=== PATIENT | female | born 1955 | race Caucasian/White ===

== ENCOUNTER 2016-08-31 19:11 | Emergency (ER) | payer OTHER, MEDICAID ==
[~2016-08-31] VITALS: Ht 154.9 cm; Wt 54.0 kg
[~2016-08-31 19:11] MED LIST: ALPR0.25 PO
[2016-08-31 19:17] VITALS: Ht 154.9 cm; Wt 54.0 kg
[2016-08-31] MEDS ORDERED: ONDANSETRON (ODT) 4 MG TAB ODT STA (19:48)
[2016-08-31] MEDS ORDERED: NAPR-260 PO (19:57)
--- NOTE | 2016-08-31 19:57 | ERD ---
ER Documentation Chief Complaint Date/Time DATE: 08/31/16 TIME: 19:49 Chief Complaint c/o sob, states had 2 fx ribs, no sob in triage, lungs clear HPI 60-year-old female with a history of COPD and hypertension presents to the emergency department complaining of 10 out of 10, stabbing, left sided rib pain due to confirmed rib fractures. Patient states she has attempted to take Motrin and Tylenol at home with only mild relief. Patient states the pain is worse when pressure is applied to the area or when she coughs. Patient states that a week ago she was mopping in her house slipped and fell landing on her left side and immediately felt pain. Patient was seen and x-rays were performed confirming to nondisplaced fractures. Patient was sent home with instructions and pain medicine. Patient states that her pain has not improved. She denies any new injury, cough, fever, nausea, vomiting, diarrhea, or abdominal pain. ROS All systems reviewed and are negative except as per history of present illness. Medications Home Meds Reported Medications Alprazolam* (Xanax*) 0.25 Mg Tablet, 0.25 MG PO PRN 02/26/13 Allergies Allergies: Coded Allergies: gabapentin (Verified Allergy, Unknown, sob, 08/31/16) PMhx/Soc History of Surgery: Yes (KNEE, SPLEEN,APENDECTOMY) Anesthesia Reaction: No Hx Neurological Disorder: No Hx Respiratory Disorders: Yes (ASTHMA, COPD) Hx Cardiac Disorders: No Hx Psychiatric Problems: No Hx Miscellaneous Medical Probl: Yes (SCOLIOSIS) Hx Alcohol Use: No Hx Substance Use: No Hx Tobacco Use: Yes Smoking Status: Current every day smoker Physical Exam Vitals Vital Signs Date Time Temp Pulse Resp B/P Pulse Ox O2 Delivery O2 Flow Rate FiO2 08/31/16 19:17 98.7 90 20 129/71 97 Physical Exam Const: Well-developed, well-nourished, in mild distress Head: Atraumatic Eyes: Normal Conjunctiva ENT: Normal External Ears, Nose and Mouth. Neck: Full range of motion..~ No meningismus. Resp: Clear to auscultation bilaterally. No wheezes, rhonchi, rales. Cardio: Regular rate and rhythm, no murmurs Abd: Soft, non tender, non distended. Normal bowel sounds Skin: Bruise appreciated along the anterior superior iliac region. Tenderness to palpation along left lateral ribs. No crepitus. No step-offs. No petechiae or rashes Back: No midline or flank tenderness Ext: No cyanosis, or edema Neur: Awake and alert Psych: Normal Mood and Affect Procedures/MDM 60-year-old female presents with complaints of left-sided rib pain which has been ongoing since a slip and fall while mopping a floor. Patient was initially seen following the accident and diagnosed with 2 rib fractures. Patient states she continues to experience 10 out of 10 pain despite treatment of anti-inflammatory occasion at home. She denies any new trauma. Patient denies any shortness of breath, cough. Vital signs reviewed. Patient afebrile , non-tachycardic and normotensive as well as non-hypoxic. Patient received a dose of pain medicine while in the emergency department and reports significant improvement of symptoms. Patient's clinical presentation consistent with left-sided rib pain due to rib fracture. At this time I have a low suspicion for pneumothorax, COPD exacerbation, severe systemic illness or sepsis. Patient to continue treatment with oral pain medication at home as previously instructed and follow-up with primary care provider. Based on patient's history of present illness and physical examination the decision was made to discharge. The patient was re-evaluated after ED treatment and stabilizing measures, and symptoms have improved. There is no evidence of life threatening injuries or illnesses at this time. On re-examination, patient resting in no distress, stable vital signs, reports feeling better and safe for discharge with outpatient follow up with PMD in 1-2 days. Patient given return precautions. Departure Diagnosis: Primary Impression: Rib pain on left side Additional Impression: Rib fractures Encounter type: subsequent encounter Rib fracture type: multiple ribs Fracture type: closed Laterality: left Fracture healing: with routine healing Qualified Code: S22.42XD - Closed fracture of multiple ribs of left side with routine healing, subsequent encounter WILLIE CHACKO PA-C Aug 31, 2016 19:57
[2016-08-31] MEDS ORDERED: morphine 10 MG INJ IM ONE (20:00)
[2016-08-31 20:03] VITALS: BP 129/71; RESP 20
[2016-09-01] MEDS ORDERED: NAPR-260 PO (15:33)
== END 2016-08-31 20:05 | disposition home or self-care (01) ==
LOC: FTE 19:11
DX: S22.42XD Multiple fractures of ribs, left side, subsequent encounter for fracture with routine healing (principal); F17.210 Nicotine dependence, cigarettes, uncomplicated; J45.901 Unspecified asthma with (acute) exacerbation; I10 Essential (primary) hypertension; J44.9 Chronic obstructive pulmonary disease, unspecified; W01.0XXD Fall on same level from slipping, tripping and stumbling without subsequent striking against object, subsequent encounter
CPT/HCPCS: 96372; J2270

== ENCOUNTER 2016-09-01 14:14 | Emergency (ER) | payer OTHER, MEDICAID ==
[~2016-09-01] VITALS: Ht 152.4 cm; Wt 65.0 kg
[~2016-09-01 14:14] MED LIST changes: +NAPR-260 PO
[2016-09-01 14:22] VITALS: Ht 152.4 cm; Wt 65.0 kg
[2016-09-01] MEDS ORDERED: NAPR-260 PO (15:33)
[2016-09-01] MEDS ORDERED: KETOROLAC 30 MG INJ IM STA (15:33)
--- NOTE | 2016-09-01 17:50 | ERD ---
ER Documentation Chief Complaint Date/Time DATE: 09/01/16 TIME: 17:45 Chief Complaint AGITATED,WANTS PAIN SHOT, MOOD SWINGS, HX BIPOLAR HPI 60-year-old woman with a history of left rib pain and injury presents again for morphine injection. She was seen and evaluated here yesterday and discharged with anxiolytics, I also saw her admission, the hospital last week for the exact same thing, at that time she was a new patient to me and I did administer morphine intramuscular injection for pain relief and told her to follow-up with her PMD as well as a pain specialist. She denies recent falls, no cough, no fevers or chills, no shortness of breath, no calf or leg swelling. ROS All systems reviewed and are negative except as per history of present illness. Medications Home Meds Active Scripts Naproxen* (Naprosyn*) 500 Mg Tablet, 500 MG PO BID Y for PAIN AND/OR INFLAMMATION, #30 TAB Prov:ABILIO FALL MD 09/01/16 Naproxen* (Naprosyn*) 500 Mg Tablet, 500 MG PO BID Y for PAIN AND/OR INFLAMMATION, #30 TAB Prov:WILLIE CHACKO PA-C 08/31/16 Reported Medications Alprazolam* (Xanax*) 0.25 Mg Tablet, 0.25 MG PO PRN 02/26/13 Allergies Allergies: Coded Allergies: gabapentin (Verified Allergy, Unknown, sob, 08/31/16) PMhx/Soc Left-sided rib fracture, anxiety, chronic pain syndrome, opioid dependence, anxious History of Surgery: Yes (KNEE, SPLEEN,APENDECTOMY) Anesthesia Reaction: No Hx Neurological Disorder: No Hx Respiratory Disorders: Yes (ASTHMA, COPD) Hx Cardiac Disorders: No Hx Psychiatric Problems: No Hx Miscellaneous Medical Probl: Yes (SCOLIOSIS) Hx Alcohol Use: No Hx Substance Use: No Hx Tobacco Use: Yes FmHx Family History: No diabetes Physical Exam Vitals Vital Signs Date Time Temp Pulse Resp B/P Pulse Ox O2 Delivery O2 Flow Rate FiO2 09/01/16 14:22 98.1 90 18 140/78 99 Physical Exam GENERAL: Well-developed, well-nourished, well-hydrated, in no apparent distress , looks nontoxic in appearance HEENT: Moist mucous membranes, pink conjunctiva, no cervical spine tenderness or step-off deformities, no goiter, no jaundice or icterus, extraocular movements intact without pain. No submandibular induration, and no pharyngeal erythema NEURO: Alert and oriented 3, cranial nerves II through XII intact bilaterally, pupils equal round reactive to light, no focal deficits or facial asymmetry, sensation intact distally Strength 5/5 in upper and lower extremities bilaterally CARDIAC: Regular rate and rhythm, no murmurs rubs or gallops LUNGS: Clear bilaterally no wheezing crackles or stridor ABDOMEN: Soft nontender, no guarding, no rigidity, no rebound, no psoas sign no obturator sign. Normoactive bowel sounds SKIN: Warm and dry to touch, no abrasions, contusions, or hematomas, no lacerations, no ecchymosis, no target lesions, and without ulcers EXTREMITIES: No clubbing cyanosis or edema, calves are bilaterally symmetrical, no Homans sign, no popliteal cord sign. Distal pulses equal and bilateral PSYCH: Normal affect without agitation or irritability Results 24 hrs Current Medications Medications (Trade) Dose Ordered Sig/Hollis Route PRN Reason Start Time Stop Time Status Last Admin Dose Admin Ketorolac Tromethamine (Toradol) 30 mg ONCE STAT IM 09/01/16 15:33 09/01/16 15:34 DC Procedures/MDM I provided reassurance to the patient but refused to administer opioids, I referred her to her PMD for pain specialist consultation. She was given a dose of morphine for this pain yesterday. I reviewed her previous imaging studies. I administered Toradol 30 mg intramuscular injection here in the emergency department with good pain relief. Differential diagnoses considered, included but not limited to acute coronary syndrome, pulmonary embolism, aortic dissection, abdominal aortic aneurysm, sepsis, stroke, meningitis, encephalitis, pneumonia, appendicitis, cholecystitis , bowel obstruction, pyelonephritis, nephrolithiasis, cystitis, as well as metabolic, hematologic, and electrolyte abnormalities. As well as abscess, cellulitis, fractures, and dislocations. Patient feels much better at this time, and vital signs are normal, symptoms have improved. I did give strict instructions to return to the ED if symptoms continue or worsen, patient will otherwise follow-up with primary care physician. Patient understood instructions and agreed to plan. Departure Diagnosis: Primary Impression: Rib pain Additional Impressions: Pain syndrome, chronic Opioid dependence Substance use status: with unspecified opioid-induced disorder Qualified Code : F11.29 - Opioid dependence with opioid-induced disorder Condition: Good Patient Instructions: Fracture, Rib Referrals: ASHOK ANGELES MD, DAVID MD Sep 01, 2016 17:50
== END 2016-09-01 18:30 | disposition home or self-care (01) ==
LOC: E/R 14:14
DX: R07.81 Pleurodynia (principal); G89.4 Chronic pain syndrome; F11.29 Opioid dependence with unspecified opioid-induced disorder; J45.909 Unspecified asthma, uncomplicated; Z87.891 Personal history of nicotine dependence
CPT/HCPCS: 96372; 99284; J1885

== ENCOUNTER 2018-10-16 00:27 | Emergency (ER) | payer MEDICARE, MEDICAID ==
[~2018-10-16] VITALS: Ht 160 cm; Wt 53.3 kg
[~2018-10-16 00:27] MED LIST changes: -NAPR-260 PO; +NAPR-985 PO
[2018-10-16 00:40] VITALS: Ht 160 cm; Wt 53.3 kg
[2018-10-16] MEDS ORDERED: DIPHENHYDRAMINE 25 MG CAP PO ONE (03:00)
[2018-10-16] MEDS ORDERED: predniSONE 20 MG TAB PO ONE (03:00)
[2018-10-16] MEDS ORDERED: RANITIDINE 150 MG TAB PO ONE (03:00)
[2018-10-16] MEDS ORDERED: RANI150T35 PO (04:00)
[2018-10-16] MEDS ORDERED: PRED20TA PO (04:00)
[2018-10-16] MEDS ORDERED: LORA10CA PO (04:00)
[2018-10-16] MEDS ORDERED: HYDR25CA PO (04:00)
[2018-10-16] MEDS ORDERED: HYDROCHLOROTHIAZIDE 25 MG TAB PO ONE (05:00)
[2018-10-16 06:24] VITALS: BP 186/95; PULSE 80; RESP 16
--- NOTE | 2018-10-16 23:56 | ERD ---
ER Documentation Chief Complaint Chief Complaint generalize body rash x 2 days HPI This is a 62-year-old female patient who presents to the emergency room with generalized body rash. States this rash started yesterday after trying on clothes at [address] [facility], was seen at a different emergency room and given 1 dose of prednisone and Benadryl but no prescription. Patient states urticaria had resolved and then started again this evening worse than it was yesterday. Patient presents with urticarial rash on back, shoulders, arms, no rash on lower extremities. No wheezing, no cough, no angioedema. Patient medical history includes bipolar, anxiety, hypertension. Patient is observed to be hypertensive at triage, states she takes unknown blood pressure medication at home. States she had been on hydrochlorothiazide recently but it was changed to another medication of name she does not remember. Patient denies chest pain, no headache, patient pleasant and cooperative at time of evaluation. ROS All systems reviewed and are negative except as per history of present illness. Medications Home Meds Active Scripts Hydroxyzine Pamoate* (Vistaril*) 25 Mg Capsule, 25 MG PO Q6H PRN for ITCHING for 10 Days, #30 CAP Prov:THA GARSIA NP 10/16/18 Ranitidine Hcl* (Zantac*) 150 Mg Tablet, 150 MG PO BID PRN for RASH for 5 Days, #10 TAB Prov:THA GARSIA NP 10/16/18 Prednisone* (Prednisone*) 20 Mg Tab, 40 MG PO DAILY for 3 Days, #3 TAB Prov:THA GARSIA NP 10/16/18 Loratadine* (Claritin*) 10 Mg Capsule, 10 MG PO DAILY for 5 Days, #5 CAP Prov:THA GARSIA NP 10/16/18 Naproxen* (Naprosyn*) 500 Mg Tablet, 500 MG PO BID PRN for PAIN AND/OR INFLAMMATION, #30 TAB Prov:ABILIO FALL MD 09/01/16 Naproxen* (Naprosyn*) 500 Mg Tablet, 500 MG PO BID PRN for PAIN AND/OR INFLAMMATION, #30 TAB Prov:WILLIE CHACKO PA-C 08/31/16 Reported Medications Alprazolam* (Xanax*) 0.25 Mg Tablet, 0.25 MG PO PRN 02/26/13 Allergies Allergies: Coded Allergies: gabapentin (Verified Allergy, Unknown, sob, 4/21/17) PMhx/Soc History of Surgery: Yes (KNEE, SPLEEN,APENDECTOMY) Anesthesia Reaction: No Hx Neurological Disorder: No Hx Respiratory Disorders: Yes (ASTHMA, COPD) Hx Cardiac Disorders: No Hx Psychiatric Problems: No Hx Miscellaneous Medical Probl: Yes (SCOLIOSIS) Hx Alcohol Use: No Hx Substance Use: No Hx Tobacco Use: Yes Smoking Status: Current every day smoker FmHx Family History: No diabetes, No coronary disease, No other Physical Exam Vitals Vital Signs Date Temp Pulse Resp B/P (MAP) Pulse Ox O2 O2 Flow FiO2 Time Delivery Rate 10/16/18 97.8 80 16 186/95 98 Room Air 06:24 (125) 10/16/18 81 191/96 05:10 (127) 10/16/18 228/118 04:34 (154) 10/16/18 97.3 98 18 180/90 97 00:40 (120) Physical Exam Const: No acute distress Head: Atraumatic Eyes: Normal Conjunctiva, PERRL ENT: Normal External Ears, Nose and Mouth. Pharynx pink, moist, no lesions, no exudate, no petechiae, no angioedema, no drooling or stridor, no dysphagia. Neck: Full range of motion. No meningismus. Resp: Clear to auscultation bilaterally Cardio: Regular rate and rhythm, no murmurs Abd: Soft, non tender, non distended. Normal bowel sounds Skin: No diffuse urticarial rash with confluent wheals, pink and blanchable, extreme pruritus, no excoriations or cellulitis Ext: No cyanosis, or edema Neur: Awake and alert Psych: Normal Mood and Affect Results 24 hrs Current Medications Medications Dose Sig/Hollis Start Time Status Last (Trade) Ordered Route PRN Stop Time Admin Dose Reason Admin 25 mg ONCE ONCE 10/16/18 DC 10/16/18 Diphenhydrami PO 03:00 10/16/18 03:04 ne HCl 03:01 (Benadryl) Prednisone 40 mg ONCE ONCE 10/16/18 DC 10/16/18 (Prednisone) PO 03:00 10/16/18 03:04 03:01 Ranitidine 150 mg ONCE ONCE 10/16/18 DC 10/16/18 HCl PO 03:00 10/16/18 03:12 (Zantac) 03:01 25 mg ONCE ONCE 10/16/18 DC 10/16/18 Hydrochloroth PO 05:00 10/16/18 05:09 iazide 05:01 (Hydrochlorot hiazide) Procedures/MDM This is a 62-year-old female patient who presents to the emergency room with generalized body rash. ED COURSE: The patient was stable throughout ED course. I kept the patient and/or family informed of laboratory and diagnostic imaging results throughout the ED course. MEDICATIONS GIVEN: Benadryl, prednisone, ranitidine, hydrochlorothiazide Patient tolerated medication well with no adverse reactions. Patient reported improvement in urticaria rash nearly resolved with treatment. Patient blood pressure improved at time of discharge. MDM: Patient's dermatologic symptoms have stabilized while she have been evaluated in the department and are appropriate for outpatient work up. No evidence of Bill Manolo's syndrome, Kawasaki's, or sepsis. Instructions provided on self-care including cool soaks, oatmeal bath, topical solutions such as Caladryl, hydrocortisone, and prescribed medications. Instructions provided on s/sx of worsening of condition including anaphylaxis and when to seek emergent medical treatment. Patient instructed to follow-up with primary provider in 2-3 days for reevaluation. Patient verbalizes plan to fill prescriptions, verbalizes understanding of indication and frequency of prescribed medications, patient states that she has anti-hypertensive medications at home that she takes regularly in the morning. DISPOSITION: The patient has been discharge home to follow-up with community physician. Departure Diagnosis: Primary Impression: Urticaria Additional Impression: Allergic reaction Condition: Stable Patient Instructions: Hives Referrals: [facility] YOU HAVE RECEIVED A MEDICAL SCREENING EXAM AND THE RESULTS INDICATE THAT YOU DO NOT HAVE A CONDITION THAT REQUIRES URGENT TREATMENT IN THE EMERGENCY DEPARTMENT. FURTHER EVALUATION AND TREATMENT OF YOUR CONDITION CAN WAIT UNTIL YOU ARE SEEN IN YOUR DOCTORS OFFICE WITHIN THE NEXT 1-2 DAYS. IT IS YOUR RESPONSIBILITY TO MAKE AN APPOINTMENT FOR FOLOW-UP CARE. IF YOU HAVE A PRIMARY DOCTOR --you should call your primary doctor and schedule an appointment IF YOU DO NOT HAVE A PRIMARY DOCTOR YOU CAN CALL OUR PHYSICIAN REFERRAL HOTLINE AT IF YOU CAN NOT AFFORD TO SEE A PHYSICIAN YOU CAN CHOSE FROM THE FOLLOWING [facility] [address] [facility] [facility] [facility] [address] [facility] [address] [facility] [address] [facility] [address] [facility]. [facility] [address] [facility]. [facility] [address] Additional Instructions: Thank you very much for allowing us to participate in your care. Your health and safety is our top priority at [facility]. Call your primary care doctor TOMORROW for an appointment during the next 2-4 days and bring all the information and medications prescribed. Have prescriptions filled and follow precisely the directions on the label. If the symptoms get worse and your provider is unavailable, return to the Emergency Department immediately. COMPLETE CLARITIN, RANITIDINE, AND PREDNISONE PRESCRIBED REMOVE ALL SOAPS, LOTIONS, DETERGENTS WITH PERFUMES & DYES KEEP SKIN WELL HYDRATED RETURN TO ER WITH SHORTNESS OF BREATH OR WORSENING OF SYMPTOMS THA GARSIA NP Oct 16, 2018 23:56
== END 2018-10-16 06:24 | disposition home or self-care (01) ==
LOC: FTE 00:27
DX: L50.0 Allergic urticaria (principal); J44.9 Chronic obstructive pulmonary disease, unspecified; F17.210 Nicotine dependence, cigarettes, uncomplicated
CPT/HCPCS: 99283; J7512

== ENCOUNTER 2018-11-05 23:02 | Emergency (ER) | payer MEDICARE, MEDICAID ==
[~2018-11-05] VITALS: Ht 154.9 cm; Wt 51.8 kg
[~2018-11-05 23:02] MED LIST changes: +HYDR25CA PO; +LORA10CA PO; +PRED20TA PO; +RANI150T35 PO
[2018-11-05 23:19] VITALS: Ht 154.9 cm; Wt 51.8 kg
[2018-11-06] MEDS ORDERED: IBUPROFEN 600 MG TAB PO ONE
[2018-11-06] MEDS ORDERED: HYDROCODONE/APAP (5/325) TAB PO ONE
[2018-11-06] MEDS ORDERED: IBUP-1542 PO (00:39)
[2018-11-06 00:55] VITALS: BP 148/89; PULSE 85; RESP 16
--- NOTE | 2018-11-06 02:20 | ERD ---
ER Documentation Chief Complaint Chief Complaint R knee pain today;might need shot; hx arthritis HPI 62-year-old female presents complaint of knee pain in the right knee. Patient has a history of arthritis or arthritis in that knee for which she gets knee injections at [facility]. Patient is requesting any injection here. Patient is ambulatory without difficulty. Knee is nontender to palpation. Patient denies any recent injury, fevers, chills, edema, erythema, leg swelling. ROS All systems reviewed and are negative except as per history of present illness. Medications Home Meds Active Scripts Ibuprofen* (Motrin*) 600 Mg Tab, 600 MG PO Q6, #30 TAB Prov:LIZET ALAS 11/06/18 Hydroxyzine Pamoate* (Vistaril*) 25 Mg Capsule, 25 MG PO Q6H PRN for ITCHING for 10 Days, #30 CAP Prov:THA GARSIA NP 10/16/18 Ranitidine Hcl* (Zantac*) 150 Mg Tablet, 150 MG PO BID PRN for RASH for 5 Days, #10 TAB Prov:THA GARSIA NP 10/16/18 Prednisone* (Prednisone*) 20 Mg Tab, 40 MG PO DAILY for 3 Days, #3 TAB Prov:THA GARSIA NP 10/16/18 Loratadine* (Claritin*) 10 Mg Capsule, 10 MG PO DAILY for 5 Days, #5 CAP Prov:THA GARSIA NP 10/16/18 Naproxen* (Naprosyn*) 500 Mg Tablet, 500 MG PO BID PRN for PAIN AND/OR INFLAMMATION, #30 TAB Prov:ABILIO FALL MD 09/01/16 Naproxen* (Naprosyn*) 500 Mg Tablet, 500 MG PO BID PRN for PAIN AND/OR INFLAMMATION, #30 TAB Prov:WILLIE CHACKO PA-C 08/31/16 Reported Medications Alprazolam* (Xanax*) 0.25 Mg Tablet, 0.25 MG PO PRN 02/26/13 Allergies Allergies: Coded Allergies: gabapentin (Verified Allergy, Unknown, sob, 08/31/16) PMhx/Soc History of Surgery: Yes (KNEE, SPLEEN,APENDECTOMY) Anesthesia Reaction: No Hx Neurological Disorder: No Hx Respiratory Disorders: Yes (ASTHMA, COPD) Hx Cardiac Disorders: No Hx Psychiatric Problems: No Hx Miscellaneous Medical Probl: Yes (SCOLIOSIS) Hx Alcohol Use: No Hx Substance Use: No Hx Tobacco Use: Yes Smoking Status: Current every day smoker FmHx Family History: No diabetes, No coronary disease, No other Physical Exam Vitals Vital Signs Date Temp Pulse Resp B/P (MAP) Pulse Ox O2 O2 Flow FiO2 Time Delivery Rate 11/06/18 98.0 85 16 148/89 98 Room Air 00:55 (108) 11/05/18 97.8 89 18 146/84 96 23:19 (104) Physical Exam Const: No acute distress Head: Atraumatic Eyes: Normal Conjunctiva ENT: Normal External Ears, Nose and Mouth. Neck: Full range of motion. No meningismus. Resp: Clear to auscultation bilaterally Cardio: Regular rate and rhythm, no murmurs Abd: Soft, non tender, non distended. Normal bowel sounds Skin: No petechiae or rashes Back: No midline or flank tenderness Ext: No cyanosis, or edema lower Extremity - bilateral: Skin: No laceration Compartments: Soft Motor: Full active range of motion hip/knee/ankle/foot Sensation: Intact to light touch FDWS/MF/LF/P surfaces. Bones: Nontender pelvis/knee/proximal tibia/ malleoli/foot Joints: No effusion or laxity Pulses/Perfusion: 2+ DP, Capillary refill < 2 seconds Neur: Awake and alert Psych: Normal Mood and Affect Results 24 hrs Current Medications Medications Dose Sig/Hollis Start Time Status Last (Trade) Ordered Route PRN Stop Time Admin Dose Reason Admin Ibuprofen 600 mg ONCE ONCE 11/06/18 DC 11/06/18 (Motrin) PO 00:00 00:06 11/06/18 00:01 1 tab ONCE ONCE 11/06/18 DC 11/06/18 Acetaminophen PO 00:00 00:06 / 11/06/18 00:01 Hydrocodone Bitart (Hysham (5/325)) Procedures/MDM MDM: Patient's knee exam is within normal limits. In addition patient has history of arthritis in the knee so I do feel that this is just a recurrence of the arthritis and therefore no imaging is necessary. There is no indication that this is any kind of infection including septic arthritis. Patient was given 1 Hysham in the ER and discharged with ibuprofen. Do not feel comfortable discharging patient with Hysham because she states she is taking Ativan. I have low suspicion for neurovascular compromise, compartment syndrome, fracture, osteomyelitis, septic joint, DVT, or other emergent condition. At this time, patient is stable for discharge and outpatient management. I have instructed the patient to follow-up with his/her primary care physician in 1-2 days. I have discussed with the patient the possibility of needing to see a specialist for further workup and imaging studies if symptoms persist. I have instructed the patient to promptly return to the ER for any new or worsening symptoms including but not limited to increased pain, fever, nausea, vomiting, weakness or LOC. The patient and/or family expressed understanding of and agreement with this plan. All questions were answered. Home care instructions were provided. DISCLAIMER: Inadvertent spelling and grammatical errors are likely due to EHR/dictation soft galdamez use and do not reflect on the overall quality of patient care. Also, please note that the electronic time recorded on this note does not necessarily reflect the actual time of the patient encounter. Departure Diagnosis: Primary Impression: Knee pain Chronicity: chronic Laterality: right Qualified Codes: M25.561 - Pain in right knee; G89.29 - Other chronic pain Condition: Stable Patient Instructions: What Is Osteoarthritis?, Osteoarthritis: Non-invasive Treatment Options, Osteoarthritis: Common Sites, Osteoarthritis: Managing Pain, Osteoarthritis: Tips for Daily Living, Osteoarthritis: Injections or Surgery Referrals: MOLLY CROW MD [facility] YOU HAVE RECEIVED A MEDICAL SCREENING EXAM AND THE RESULTS INDICATE THAT YOU DO NOT HAVE A CONDITION THAT REQUIRES URGENT TREATMENT IN THE EMERGENCY DEPARTMENT. FURTHER EVALUATION AND TREATMENT OF YOUR CONDITION CAN WAIT UNTIL YOU ARE SEEN IN YOUR DOCTORS OFFICE WITHIN THE NEXT 1-2 DAYS. IT IS YOUR RESPONSIBILITY TO MAKE AN APPOINTMENT FOR FOLOW-UP CARE. IF YOU HAVE A PRIMARY DOCTOR --you should call your primary doctor and schedule an appointment IF YOU DO NOT HAVE A PRIMARY DOCTOR YOU CAN CALL OUR PHYSICIAN REFERRAL HOTLINE AT IF YOU CAN NOT AFFORD TO SEE A PHYSICIAN YOU CAN CHOSE FROM THE FOLLOWING [facility] [address] [facility] [address] [facility] [address] [facility] [address] [facility]. [facility] [address] [facility]. [facility] [address] Additional Instructions: FOLLOW UP WITH YOUR PRIMARY CARE PHYSICIAN TOMORROW.Return to this facility if you are not improving as expected. LIZET ALAS Nov 06, 2018 02:20
== END 2018-11-06 00:55 | disposition home or self-care (01) ==
LOC: FTE 23:02
DX: M25.561 Pain in right knee (principal); F17.210 Nicotine dependence, cigarettes, uncomplicated; J44.9 Chronic obstructive pulmonary disease, unspecified
CPT/HCPCS: 99283

== ENCOUNTER 2018-11-12 03:08 | Emergency (ER) | payer MEDICARE, MEDICAID ==
[~2018-11-12] VITALS: Ht 152.4 cm; Wt 55.0 kg
[~2018-11-12 03:08] MED LIST changes: +IBUP-1542 PO
[2018-11-12 03:10] VITALS: Ht 152.4 cm; Wt 55.0 kg
--- NOTE | 2018-11-12 03:18 | ERD ---
ER Documentation Chief Complaint Chief Complaint PT reports she tripped getting out of bed and has been drinking HPI The patient is a 62-year-old female, presenting to the ER because of bilateral knee pain after she tripped getting out of bed. She denies any head injury, headache, neck pain, chest pain, dyspnea, abdominal pain, vomiting. She was brought to the ER by her significant other who stated that she was trying to get out of the running car and concerning for her without having Ativan for the last 2 months. She denies auditory/visual hallucination, homicidal, suicidal ideation. She smokes and drink, denies illicit drug Past medical history: Asthma, COPD, scoliosis, hypertension Past surgical history: Appendectomy ROS All systems reviewed and are negative except as per history of present illness. Medications Home Meds Active Scripts Ibuprofen* (Motrin*) 600 Mg Tab, 600 MG PO Q6, #30 TAB Prov:LIZET ALAS 11/06/18 Hydroxyzine Pamoate* (Vistaril*) 25 Mg Capsule, 25 MG PO Q6H PRN for ITCHING for 10 Days, #30 CAP Prov:THA GARSIA NP 10/16/18 Ranitidine Hcl* (Zantac*) 150 Mg Tablet, 150 MG PO BID PRN for RASH for 5 Days, #10 TAB Prov:THA GARSIA NP 10/16/18 Prednisone* (Prednisone*) 20 Mg Tab, 40 MG PO DAILY for 3 Days, #3 TAB Prov:THA GARSIA NP 10/16/18 Loratadine* (Claritin*) 10 Mg Capsule, 10 MG PO DAILY for 5 Days, #5 CAP Prov:THA GARSIA NP 10/16/18 Naproxen* (Naprosyn*) 500 Mg Tablet, 500 MG PO BID PRN for PAIN AND/OR INFLAMMATION, #30 TAB Prov:ABILIO FALL MD 09/01/16 Naproxen* (Naprosyn*) 500 Mg Tablet, 500 MG PO BID PRN for PAIN AND/OR INFLAMMATION, #30 TAB Prov:WILLIE CHACKO PA-C 08/31/16 Reported Medications Alprazolam* (Xanax*) 0.25 Mg Tablet, 0.25 MG PO PRN 02/26/13 Allergies Allergies: Coded Allergies: gabapentin (Verified Allergy, Unknown, sob, 08/31/16) PMhx/Soc History of Surgery: Yes (KNEE, SPLEEN,APENDECTOMY) Anesthesia Reaction: No Hx Neurological Disorder: No Hx Respiratory Disorders: Yes (ASTHMA, COPD) Hx Cardiac Disorders: No Hx Psychiatric Problems: No Hx Miscellaneous Medical Probl: Yes (SCOLIOSIS) Hx Alcohol Use: No Hx Substance Use: No Hx Tobacco Use: Yes Physical Exam Vitals Vital Signs Date Temp Pulse Resp B/P (MAP) Pulse Ox O2 O2 Flow FiO2 Time Delivery Rate 11/12/18 93 20 142/102 96 Room Air 03:27 (115) 11/12/18 98.3 100 20 140/94 100 03:10 (109) Physical Exam Const: No acute distress. Head: Atraumatic. Eyes: Normal Conjunctiva. ENT: Normal External Ears, Nose and Mouth. Neck: Full range of motion. No meningismus. Resp: Clear to auscultation bilaterally. Cardio: Regular rate and rhythm. Abd: Soft, non distended, normal bowel sounds, non tender. Skin: No petechiae or rashes. Back: No midline or flank tenderness. Ext: No cyanosis, or edema. Vague tenderness on bilateral knee, no crepitus, no calf tenderness Neur: Awake and alert. No focal deficit Psych: Normal Mood and Affect. Result Diagram: 11/12/18 0400 11/12/18 0446 Results 24 hrs Laboratory Tests Test 11/12/18 04:00 11/12/18 04:46 White Blood Count 7.0 10^3/ul Red Blood Count 4.59 10^6/ul Hemoglobin 13.5 g/dl Hematocrit 41.2 % Mean Corpuscular Volume 89.8 fl Mean Corpuscular Hemoglobin 29.4 pg Mean Corpuscular Hemoglobin Concent 32.8 g/dl Red Cell Distribution Width 13.3 % Platelet Count 323 10^3/UL Mean Platelet Volume 10.0 fl Immature Granulocytes % 0.300 % Neutrophils % 50.1 % Lymphocytes % 40.6 % Monocytes % 6.4 % Eosinophils % 1.7 % Basophils % 0.9 % Nucleated Red Blood Cells % 0.0 /100WBC Immature Granulocytes # 0.020 10^3/ul Neutrophils # 3.5 10^3/ul Lymphocytes # 2.8 10^3/ul Monocytes # 0.5 10^3/ul Eosinophils # 0.1 10^3/ul Basophils # 0.1 10^3/ul Nucleated Red Blood Cells # 0.0 10^3/ul Sodium Level 150 mmol/L Potassium Level 6.1 mmol/L 3.9 mmol/L Chloride Level 110 mmol/L Carbon Dioxide Level 29 mmol/L Anion Gap 11 Blood Urea Nitrogen 13 mg/dl Creatinine 0.75 mg/dl Est Glomerular Filtrat Rate mL/min > 60 mL/min Glucose Level 112 mg/dl Calcium Level 9.6 mg/dl Total Bilirubin 0.3 mg/dl Direct Bilirubin 0.00 mg/dl Indirect Bilirubin 0.3 mg/dl Aspartate Amino Transf (AST/SGOT) 38 IU/L Alanine Aminotransferase (ALT/SGPT) 23 IU/L Alkaline Phosphatase 59 IU/L Total Protein 7.5 g/dl Albumin 4.2 g/dl Globulin 3.30 g/dl Albumin/Globulin Ratio 1.27 Salicylates Level < 1.0 mg/dl Acetaminophen Level < 10.0 ug/ml Ethyl Alcohol Level 205.0 mg/dl Procedures/[place] [id number] Radiology Main Line: [phone] DIAGNOSTIC IMAGING REPORT Patient: REMI PEDROZA : 1955 Age: 62 Sex: F MR #: [id number] DOS: 11/12/18 0340 Ordering MD: YOLY PERAZA MD Location: E/R Room/Bed: PROCEDURE: Bilateral knee series CLINICAL INDICATION: Pain TECHNIQUE: AP, oblique and lateral images were obtained of the right and left knees. COMPARISON: None FINDINGS: There are no acute fractures or dislocations bilaterally. 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 There is lucency with sclerosis involving the proximal left tibia metaphysis and epiphysis that is nonaggressive and may represent changes secondary to previous trauma or possibly fibrous dysplasia. No osteoblastic/osteolytic lesions. No erosions. No evidence of right or left knee joint effusions. IMPRESSION: 1. No acute fractures dislocations or joint effusions. 2. Mild degenerate joint disease of the left knee and severe degenerate joint disease of the right knee. 3. Nonaggressive changes involving the left proximal tibial metaphys is/epiphysis as described above. RPTAT:AAJJ Physician Александр Date Time Electronically viewed and signed by Martin Westbrook Physician on 11/12/2018 04:10 BM/ CC: YOLY PERAZA MD [id number] MEDICAL MAKING DECISION: The patient is a 62-year-old female, presenting with chronic bilateral knee pain, alcohol abuse. She is stable for outpatient follow-up The differential diagnoses considered include but are not limited to arthritis, fracture, internal derangement, psychiatric illness, ankle abuse, substance abuse Departure Diagnosis: Primary Impression: Alcohol abuse Additional Impression: Bilateral chronic knee pain Condition: Good Comments I discussed the findings with the patient. I advised the patient to follow-up with the primary physician in about 1-2 days, sooner if needed and return if any concern. Disclaimer: Inadvertent spelling and grammatical errors are likely due to EHR/dictation software use and do not reflect on the overall quality of patient care. Also, please note that the electronic time recorded on this note does not necessarily reflect the actual time of the patient encounter. YOLY PERAZA MD Nov 12, 2018 03:18
[2018-11-12 05:30] VITALS: BP 133/88; PULSE 91; RESP 20
== END 2018-11-12 08:15 | disposition home or self-care (01) ==
LOC: E/R 03:08
DX: F10.10 Alcohol abuse, uncomplicated (principal); M25.562 Pain in left knee; J44.9 Chronic obstructive pulmonary disease, unspecified; Z87.891 Personal history of nicotine dependence
CPT/HCPCS: 36415; 80053; 80307; 84132; 85025